=== PATIENT | male | born 2005 | race Asian ===

== ENCOUNTER 2024-01-05 22:10 | Emergency (ER) | payer BC, SELFPAY ==
[2024-01-05 22:21] VITALS: BP 132/81; PULSE 110; RESP 16; TEMP 37.1; O2SAT 96; BMI 16.7
--- NOTE | 2024-01-05 22:46 | ED_ITS ---
HPI - General Adult General Date Seen: 01/05/24 Chief complaint: Abdominal Pain Stated complaint: lower right side abdominal pain Time Seen by Provider: 01/05/24 22:45 History of Present Illness HPI narrative: This is a 18-year-old previously healthy male who presents to the ER tonight for abdominal pain. Pain actually started yesterday (while he was on a trip to [place]) and was fairly mild then. It got worse today. It is in his right lower quadrant and does not radiate. No flank or groin pain. It is continuous and constant. Sometimes it flares up and becomes more shooting and severe. No fever. No vomiting. No nausea. Appetite has been normal this afternoon but began to be less tonight. Urination has been normal. No diarrhea. No constipation. No previous surgeries. Related Data Home Medications Medication Instructions Recorded Confirmed albuterol sulfate 90 mcg/actuation inhalation 12/16/23 12/16/23 aerosol inhaler beclomethasone dipropionate 80 1 inh inhalation BID 12/16/23 12/16/23 mcg/actuation HFA breath activated aerosol (Qvar RediHaler) Previous Rx's Medication Instructions Recorded polyethylene glycol 3350 17 17 g PO DAILY PRN #119 grams 01/06/24 gram/dose oral powder (Miralax) Allergies Allergy/AdvReac Type Severity Reaction Status Date / Time No Known Drug Allergies Allergy Verified 12/16/23 15:30 PFSH [facility] Social History Smoking Status: Never smoker Non-prescribed substance use: denies use Exam Narrative: Exam Narrative: Constitutional: Appears well-developed and well-nourished. Alert. Conversant and polite. Non toxic. HENT: Head: Atraumatic. Nose: Nose normal. Mouth/Throat: Oral mucosa is clear and moist. no trismus. Pharynx normal. Tonsils symmetric. No tonsillar enlargement, erythema, or exudate. Eyes: Conjunctivae normal. EOM normal. Pupils equal, round, and reactive to light. No scleral icterus. Neck: Normal range of motion. Neck supple. No tracheal deviation present. Cardiovascular: Normal rate, regular rhythm. No gallop. No friction rub. No murmur heard. Symmetric radial artery pulses Pulmonary/Chest: Effort normal. No stridor. No respiratory distress. No wheezes. No rales. No rhonchi . No tenderness. Abdominal: Soft. Bowel sounds normal. No distension. No mass. No left-sided tenderness. No Rovsing sign. No CVA tenderness. Right lower quadrant tenderness. No rebound. No guarding. : Normal circumcised penis. Normal testicles and scrotum. No inguinal pamela s. No inguinal hernia Musculoskeletal: RUE: Normal range of motion. No tenderness. No deformity LUE: Normal range of motion. No tenderness. No deformity RLE: Normal range of motion. No edema. No tenderness. No deformity LLE: Normal range of motion. No edema. No tenderness. No deformity Lymph: No inguinal adenopathy. Neurological: Alert and oriented to person, place, and time. Normal strength. CN II-VII intact. No sensory deficit. GCS eye subscore is 4. GCS verbal subscore is 5. GCS motor subscore is 6. Normal coordination Skin: Skin is warm and dry. No rash noted. No pallor. Normal capillary refill. Psychiatric: Normal mood. Normal affect. Const: Vital Signs, click to edit/add: Vital Signs - 24 hr 01/05/24 22:21 Temperature 98.8 F Pulse Rate [Pulse Oximeter] 110 H Respiratory Rate 16 Blood Pressure [Le ft Upper Arm] 132/81 Pulse Oximetry 96 Oxygen Delivery Me thod Room Air Course Course ED Course: Recheck-feeling better. CT scan results are back. Discussed with the patient in detail. Discussed return precautions and plan of care. He is in agreement. Vital Signs Vital signs: Initial Vital Signs Temperature 98.8 F 01/05/24 22:21 Temperature Source Temporal Artery Scan 01/05/24 22:21 Pulse Rate 110 H 01/05/24 22:21 Respiratory Rate 16 01/05/24 22:21 Blood Pressure 132/81 01/05/24 22:21 Blood Pressure Mean 98 01/05/24 22:21 Blood Pressure Position Supine 01/05/24 22:21 Pulse Oximetry 96 01/05/24 22:21 Oxygen Delivery Method Room Air 01/05/24 22:21 Vital Signs Temperature 98.8 F 01/05/24 22:21 Pulse Rate 110 H 01/05/24 22:21 Respiratory Rate 16 01/05/24 22:21 Blood Pressure 132/81 01/05/24 22:21 Pulse Oximetry 96 01/05/24 22:21 Oxygen Delivery Method Room Air 01/05/24 22:21 Temperature 98.8 F 01/05/24 22:21 Pulse Rate 110 H 01/05/24 22:21 Respiratory Rate 16 01/05/24 22:21 Blood Pressure 132/81 01/05/24 22:21 Pulse Oximetry 96 01/05/24 22:21 Oxygen Delivery Method Room Air 01/05/24 22:21 Medications Administered Medications: Discontinued Medications Generic Name Dose Route Start Last Admin Trade Name Lulú PRN Reason Stop Dose Admin Ketorolac Tromethamine 15 mg 01/05/24 22:47 01/05/24 23:15 Ketorolac 15 Mg/Ml Inj IVP 01/05/24 22:48 15 mg ONCE ONE Administration Medical Decision Making MDM Narrative Medical decision making narrative: Presented to the Emergency Department with right lower quadrant abdominal pain. He had mild discomfort and bloating yesterday and has right or lower quadrant abdominal pain today. No fever. No anorexia, nausea, or vomiting. The differential diagnosis of abdominal pain includes: Appendicitis, Bowel Obstruction, Ulcer, Ischemia, Cholecystitis, Diverticulitis, Pancreatitis, UTI, kidney stone, Enteritis/Colitis, amongst many other etiologies. Laboratory testing does not reveal a cause for the patient's pain. CT imaging is obtained to look for possible acute appendicitis or other cause for right lower quadrant abdominal pain. Imaging is noted to be normal, however, CT is not definitively identified on the scan. There is no evidence for any periappendiceal fat stranding, free fluid or other indirect signs of appendicitis. The exact etiology of the abdominal pain is not clear at this time. No life threatening cause or need for emergent surgery or hospital admission is detected today. The patient was advised that if symptoms do not completely resolve within another 12-18 hours re-evaluation with primary care or return to the ED is indicated. He does appear to have a fair amount of stool in the right colon which could potentially be a cause for pain. Will treat him with MiraLax dizzy we can make the pain resolved. The patient also understands that if they worsen, they should return to the ER right away. I discussed the uncertainty about the diagnosis and answered the patient's questions. Abdominal pain return precautions discussed. Lab Data Labs: Lab Results 01/05/24 Range/Units 23:10 WBC 5.90 (4.50-11.00) K/uL RBC 5.45 (4.30-5.90) m/uL Hgb 16.3 (13.5-17.5) gm/dL Hct 48.8 (37.0-53.0) % MCV 90 (80-100) fL MCH 30 (26-34) pg MCHC 33 (32-36) gm/dL RDW Coeff of Tonny 12.8 (11.5-15.5) % Plt Count 174 (140-440) K/uL Neut % (Auto) 57.5 (42.0-72.0) % Lymph % (Auto) 33.1 (20-44) % [place] % (Auto) 6.9 (0.0-11.0) % Eos % (Auto) 1.5 (0.0-7.0) % Baso % (Auto) 0.2 (0.0-3.0) % Neut # (Auto) 3.39 (1.7-7.0) K/uL Lymph # (Auto) 1.95 (0.90-2.90) K/uL [place] # (Auto) 0.40 (0.00-0.90) K/UL Eos # (Auto) 0.09 (0.00-0.50) K/uL Baso # (Auto) 0.01 (0.00-0.30) K/uL Abs Immat Gran (auto) 0.05 (0.00-0.30) K/uL Imm/Tot Granulo (auto) 0.8 % Sodium 140 (135-149) mmol/L Potassium 3.8 (3.6-5.1) mmol/L Chloride 105 (96-114) mmol/L Carbon Dioxide 25 (20-32) mmol/L Anion Gap 10 (7-15) mEq/L BUN 17 (5-24) mg/dL Creatinine 0.8 (0.5-1.5) mg/dL Estimated Creat Clear 103.95 Estimated GFR 130 ml/min Glucose 93 (60-115) mg/dL Calcium 10.0 (8.4-10.6) mg/dL Total Bilirubin 1.1 (0.1-1.5) mg/dL AST 27 (12-35) U/L ALT 26 (4-50) U/L Alkaline Phosphatase 73 (40-150) U/L Total Protein 8.7 H (6.0-8.3) g/dL Albumin 5.0 (3.3-5.0) g/dL Lipase 80 (23-300) U/L Urine Color Yellow (Yellow) Urine Appearance Clear (Clear) Urine pH 6.0 (5.0-8.5) Ur Specific [place] >= 1.030 (1.000-1.030) Urine Protein Negative (Negative) Urine Glucose (UA) Negative (Negative) Urine Ketones Negative (Negative) Urine Blood Negative (Negative) Urine Nitrite Negative (Negative) Urine Bilirubin Negative (Negative) Urine Urobilinogen 0.2 (0.2-1.0) Ur Leukocyte Esterase Negative (Negative) Urine RBC 0-2 (0-2) Urine WBC 0-2 (0-5) Ur Squamous Epith Cells None (None-Few) Urine Bacteria None (None) Imaging Data CT scan - abdomen: Attestation: I have reviewed the pertinent imaging results. Radiologist's impression: FINDINGS: Lower chest: Unremarkable. Liver: Unremarkable. Spleen: Unremarkable. Pancreas: Unremarkable. Gallbladder: Unremarkable. Kidney: Unremarkable. No kidney or ureteral stones or obstruction seen. Adrenal: Unremarkable. Bowel: Unremarkable. The appendix is not identified. Vascular: Unremarkable. Lymph: Unremarkable. Peritoneum: Unremarkable. No pneumoperitoneum is seen. No significant ascites is noted. Pelvis: Unremarkable. Soft tissue: Unremarkable. Bone: Moderate to severe levoscoliosis is noted with associated facet arthritis and degenerative disc disease. IMPRESSION: 1. No CT correlate for the patient`s symptoms seen. Discharge Plan Discharge Clinical Impression: Abdominal pain, RLQ Patient Disposition: Home, Self-Care Condition: Stable Instructions: Abdominal Pain (ED) Additional Instructions: As we discussed, please come back to the ER or see your doctor tomorrow if you have ongoing abdominal pain and are not completely back to normal. If you have worsening symptoms such as worsening pain, fever, vomiting, or any other problem, come back to the ER right away to be rechecked. At this point your workup looks reassuring. We do not see any sign of appendi citis. You may have some constipation in your right colon which potentially could be the cause for your pain. You can treat this with a stool softener called MiraLax. Prescriptions: New polyethylene glycol 3350 [Miralax] 17 gram/dose powder 17 g PO DAILY PRNQty: 119 0RF No Action albuterol sulfate 90 mcg/actuation HFA aerosol inhaler inhalation Qvar RediHaler 80 mcg/actuation HFA aerosol breath activated 1 inh inhalation BID Follow Up/Referrals: Provider,Not a Local [Primary Care Provider] - Stand Alone Forms: [facility] me [facility] Info Instructions
--- NOTE | 2024-01-05 22:47 | CT_ITS ---
Patient: FELICIA OMALLEY Facility:?[facility] Patient ID:?[id number] Site Patient ID:?[id number]. Site :?[id number] Study:?CT-Abdomen/Pelvis with 54cc [id number] contrast-01/05/2024 11:35:14 PM Ordering Physician:salvador ardon Final Report: INDICATION: Right lower quadrant abdominal pain TECHNIQUE: CT Abdomen and pelvis with i.v. contrast. Coronal and sagittal reformats were obtained. CONTRAST: 54 mL Isovue 370 COMPARISON: None FINDINGS: Lower chest: Unremarkable. Liver: Unremarkable. Spleen: Unremarkable. Pancreas: Unremarkable. Gallbladder: Unremarkable. Kidney: Unremarkable. No kidney or ureteral stones or obstruction seen. Adrenal: Unremarkable. Bowel: Unremarkable. The appendix is not identified. Vascular: Unremarkable. Lymph: Unremarkable. Peritoneum: Unremarkable. No pneumoperitoneum is seen. No significant ascites is noted. Pelvis: Unremarkable. Soft tissue: Unremarkable. Bone: Moderate to severe levoscoliosis is noted with associated facet arthritis and degenerative disc disease. IMPRESSION: 1. No CT correlate for the patient`s symptoms seen. Dictated by Josafat Fuller MD @ 01/05/2024 11:54:33 PM Please note that all CT scans at this facility use dose modulation, iterative reconstruction, and/or weight-based dosing when appropriate to reduce radiation dose to as low as reasonably achievable. Dictated by: Josafat Fuller MD @ 01/05/2024 23:54:40 Signed by:?Josafat Fuller MD @01/05/2024 11:54:40 PM (Electronic Signature)
[2024-01-05 23:13] LABS: Appearance Urine Clear (Clear); Bilirubin Urine Negative (Negative); Blood Urine Negative (Negative); Color Urine Yellow (Yellow); Glucose Urine Negative (Negative); Ketones Urine Negative (Negative); Leukocyte Esterase Urine Negative (Negative); Nitrite Urine Negative (Negative); Protein Urine Negative (Negative); Specific Gravity Urine >= 1.030 (1.000-1.030); Urobilinogen Urine 0.2 (0.2-1.0)
[2024-01-05] MEDS: KETOROLAC 15 MG/ML inj IVP (23:15)
[2024-01-05 23:17] LABS: Basophils Absolute Auto 0.01 K/uL (0.00-0.30); Basophils Percent Auto 0.2 % (0.0-3.0); Eosinophils Absolute Auto 0.09 K/uL (0.00-0.50); Eosinophils Percent Auto 1.5 % (0.0-7.0); Hematocrit 48.8 % (37.0-53.0); Hemoglobin* 16.3 gm/dL (13.5-17.5); Immature Granulocytes Abs Auto 0.05 K/uL (0.00-0.30); Immature Granulocytes Pct Auto 0.8 %; Lymphocytes Absolute Auto 1.95 K/uL (0.90-2.90); Lymphocytes Percent Auto 33.1 % (20-44); Mean Corpuscular HGB Conc 33 gm/dL (32-36); Mean Corpuscular Hemoglobin 30 pg (26-34); Mean Corpuscular Volume 90 fL (80-100); Monocytes Percent Auto 6.9 % (0.0-11.0); Neutrophils Absolute Auto 3.39 K/uL (1.7-7.0); Neutrophils Percent Auto 57.5 % (42.0-72.0); Platelet Count* 174 K/uL (140-440); RDW Coefficient of Variation % 12.8 % (11.5-15.5); Red Blood Count 5.45 m/uL (4.30-5.90)
[2024-01-05 23:20] LABS: Slide Review Reflex No
[2024-01-05 23:28] LABS: RBC Urine 0-2 (0-2); WBC Urine 0-2 (0-5)
[2024-01-05 23:29] LABS: Chloride* 105 mmol/L (96-114)
[2024-01-05 23:30] LABS: Potassium* 3.8 mmol/L (3.6-5.1); Sodium* 140 mmol/L (135-149)
[2024-01-05 23:32] LABS: Alkaline Phosphatase* 73 U/L (40-150); Anion Gap 10 mEq/L (7-15); Aspartate Amino Transferase* 27 U/L (12-35); Bilirubin Total* 1.1 mg/dL (0.1-1.5); Blood Urea Nitrogen* 17 mg/dL (5-24); Carbon Dioxide* 25 mmol/L (20-32); Creatinine* 0.8 mg/dL (0.5-1.5); Est. Creatinine Clearance* 103.95; Estimated Glomerular Filt Rate 130 ml/min; Lipase* 80 U/L (23-300); Total Protein* 8.7 g/dL (6.0-8.3)
[2024-01-05 23:33] LABS: Alanine Aminotransferase* 26 U/L (4-50); Glucose* 93 mg/dL (60-115)
== END 2024-01-06 00:49 | disposition home or self-care (01) ==
PROVIDERS: Emergency Provider Emergency Medicine
DX: R10.31 Right lower quadrant pain (principal)
CPT/HCPCS: 36415; 74177; 80053; 81001; 83690; 85025; 96374; 99283; 99284; J1885; Q9967